=== PATIENT | male | born 1935 | race Caucasian/White ===

== ENCOUNTER 2025-09-09 11:57 | Inpatient (IN) | payer MEDICARE, MEDICAID ==
[~2025-09-09] VITALS: Ht 177.8 cm; Wt 79.9 kg
[2025-09-09] MEDS ORDERED: LORA0.5T20 PO (12:19)
[2025-09-09] MEDS ORDERED: ROSU20TA98 PO (12:19)
[2025-09-09] MEDS ORDERED: MAGN400T57 PO (12:19)
[2025-09-09] MEDS ORDERED: APIX5TAB PO (12:19)
[2025-09-09] MEDS ORDERED: BUME1TAB50 PO (12:19)
[2025-09-09] MEDS ORDERED: DAPA10TA PO (12:19)
[2025-09-09] MEDS ORDERED: AMIO200T74 PO (12:19)
[2025-09-09] MEDS ORDERED: SITA50 PO (12:19)
[2025-09-09] MEDS ORDERED: VALS40TA4 PO (12:19)
[2025-09-09] MEDS ORDERED: FINA-27 PO (12:19)
[2025-09-09] MEDS ORDERED: METO25XL PO (12:19)
[2025-09-09 12:24] LABS: PLATELET COUNT (AUTO) 180 K/uL (150-450); RED BLOOD CELL COUNT(AUTO) 4.30 MIL/uL (4.50-5.90); RED CELL DISTRIBUTION WIDTH 18.2 % (11.5-14.5); WHITE BLOOD COUNT (AUTO) 13.1 K/uL (4.5-11.0)
[2025-09-09 12:30] LABS: CALCIUM, TOTAL 8.9 mg/dL (8.8-10.5); CREATININE 1.76 mg/dL (0.60-1.30); GLOMERULAR FILTR. RATE CALC 37 mL/min (>60); GLUCOSE,RANDOM 297 mg/dL (70-110); SODIUM SERUM 137 mmol/L (136-145); UREA NITROGEN, BLOOD 25 mg/dL (7-18)
[2025-09-09 12:38] LABS: TROPONIN I-HIGH SENSITIVITY 29 ng/L (<76)
[2025-09-09] MEDS: ONDANSETRON HCL 4 MG/2 ML VIAL IVP ONE (12:44)
[2025-09-09] MEDS: SODIUM CHLORIDE 0.9% 1,000 ML IV ONE (12:45)
[2025-09-09] MEDS: CALCIUM GLUCONATE 100 MG/ML 10 ML IVP ONE (12:45)
[2025-09-09 13:08] LABS: RBC MORPHOLOGY COMMENT ABNORMAL RBC MORPH
[2025-09-09] MEDS: DIGOXIN 250 MCG/ML 2 ML AMP IVP ONE (13:44)
[2025-09-09 14:33] LABS: APPEARANCE,URINE CLEAR (CLEAR); GLUCOSE, URINE (UA) >=1000 mg/dL (NEGATIVE); LEUKOCYTE ESTERASE ,URINE SMALL (NEGATIVE); NITRATE,URINE NEGATIVE (NEGATIVE); OCCULT BLOOD,URINE LARGE (NEGATIVE); SPECIFIC GRAVITIY, URINE 1.027 (1.003-1.030)
[2025-09-09] MEDS: FUROSEMIDE 40 MG/4 ML VIAL IVP ONE (14:41)
[2025-09-09] MEDS ORDERED: POTA-92 PO (19:03)
[2025-09-09 20:00] VITALS: PULSE 110; PULSE 120
[2025-09-09] MEDS ORDERED: DEXTROSE 50%-WATER 25 GM/50 ML SYRINGE IVP PRN (20:15)
[2025-09-09 20:18] VITALS: BP 101/66; PULSE 99; RESP 19; TEMP 97.7; O2SAT 93
[2025-09-09] MEDS: APIXABAN 5 MG TABLET PO SCH (21:00)
[2025-09-09] MEDS: AMIODARONE HCL 200 MG TABLET PO ONE (21:01)
[2025-09-09] MEDS: INSULIN LISPRO 100 UNITS/ML SQ PRN (21:17)
[2025-09-09] MEDS ORDERED: SODIUM CHLORIDE 0.9% 250 ML IV ONE ×2 (21:49→21:52)
[2025-09-09] MEDS: CefTRIAXone 1 GM/DEXTROSE 50 ML IV SCH (22:21)
[2025-09-10] VITALS (13 sets, daily range): BP systolic 80–123; BP diastolic 49–85; PULSE 77–115; RESP 19–43; TEMP 95–98.6; O2SAT 83–98
[2025-09-10] MEDS ORDERED: LEVALBUTEROL 1.25 MG/0.5 ML NEB SOLUTION NEB PRN (03:00)
[2025-09-10 03:16] LABS: ABG BASE EXCESS -3.9 mmol/L (-2.0-3.0); ABG CARBOXYHEMOGLOBIN 1.0 % (0.5-1.5); ABG HCO3 22.2 mmol/L (21.0-28.0); ABG METHEMOGLOBIN 0.7 % (0.0-1.5); ABG OXYGEN CONTENT 18.1 mL/dL (15.0-23.0); ABG OXYGEN SATURATION 95.0 % (94.0-98.0); ABG OXYHEMOGLOBIN 93.4 % (94.0-98.0); ABG PCO2 29 mmHg (32.0-48.0); ABG PH 7.455 (7.350-7.450); ABG TOTAL HEMOGLOBIN 13.8 G/dL (13.5-17.5); FRACTIONATED INSPIRED OXYGEN 60.0 % (21-100.0); PO2, ARTERIAL BG 71.6 mmHg (83.0-108.0); SOURCE, BLOOD GAS ARTERIAL; TEMPERATURE, FAHRENHEIT, BG 97.5 FAHREN (96.0-98.6)
[2025-09-10 03:17] LABS: ABG A-A DIFF O2 325.0 mmHg (10-20.0); ALLEN TEST, BLOOD GAS Positive; FLOW, BLOOD GAS 10.00 L/min (0.00-15.00); O2 DEVICE,BLOOD GAS SIMPLE MASK (ROOM AIR); SITE, BLOOD GAS LFT RADIAL
[2025-09-10] MEDS: LORazepam 2 MG/ML VIAL IVP ONE (04:50)
[2025-09-10] MEDS ORDERED: DEXMEDETOMIDINE 400 MCG/NS 100 ML IV ONE (06:08)
[2025-09-10] MEDS: DEXMEDETOMIDINE 400 MCG/NS 100 ML IV PRN (06:20)
[2025-09-10 06:26] LABS: CALCIUM, TOTAL 9.2 mg/dL (8.8-10.5); CREATININE 1.74 mg/dL (0.60-1.30); GLOMERULAR FILTR. RATE CALC 37.0 mL/min (>60); GLUCOSE,RANDOM 166.0 mg/dL (70-110); SODIUM SERUM 136.0 mmol/L (136-145); UREA NITROGEN, BLOOD 31.0 mg/dL (7-18)
[2025-09-10 06:28] LABS: PLATELET COUNT (AUTO) 196 K/uL (150-450); RED BLOOD CELL COUNT(AUTO) 4.63 MIL/uL (4.50-5.90); RED CELL DISTRIBUTION WIDTH 18.4 % (11.5-14.5); WHITE BLOOD COUNT (AUTO) 11.4 K/uL (4.5-11.0)
[2025-09-10 06:29] LABS: PHOSPHORUS 4.3 mg/dL (2.5-4.9)
[2025-09-10 06:31] LABS: GLUCOMETER DEV NAME(LOC) 5S.2E; GLUCOSE,POINT OF CARE 361 MG/DL (70-110)
[2025-09-10 08:05] LABS: ABG BASE EXCESS -2.0 mmol/L (-2.0-3.0); ABG CARBOXYHEMOGLOBIN 0.9 % (0.5-1.5); ABG HCO3 23.1 mmol/L (21.0-28.0); ABG METHEMOGLOBIN 0.0 % (0.0-1.5); ABG OXYGEN CONTENT 16.3 mL/dL (15.0-23.0); ABG OXYGEN SATURATION 90.5 % (94.0-98.0); ABG OXYHEMOGLOBIN 89.7 % (94.0-98.0); ABG PCO2 35 mmHg (32.0-48.0); ABG PH 7.428 (7.350-7.450); ABG TOTAL HEMOGLOBIN 12.9 G/dL (13.5-17.5); FRACTIONATED INSPIRED OXYGEN 100.0 % (21-100.0); PO2, ARTERIAL BG 57.0 mmHg (83.0-108.0); SITE, BLOOD GAS LFT RADIAL; SOURCE, BLOOD GAS ARTERIAL; TEMPERATURE, FAHRENHEIT, BG 97.8 FAHREN (96.0-98.6)
[2025-09-10 08:06] LABS: ABG A-A DIFF O2 622.5 mmHg (10-20.0); ALLEN TEST, BLOOD GAS Positive; FLOW, BLOOD GAS 50.00 L/min (0.00-15.00); O2 DEVICE,BLOOD GAS HI FL CANNULA (ROOM AIR)
[2025-09-10 08:26] LABS: GLUCOMETER DEV NAME(LOC) ICU.S7; GLUCOSE,POINT OF CARE 183 MG/DL (70-110)
[2025-09-10] MEDS: BUMETANIDE 1 MG TABLET PO SCH (08:48)
[2025-09-10] MEDS: ROSUVASTATIN CALCIUM 20 MG TABLET PO SCH (08:48)
[2025-09-10] MEDS: MAGNESIUM OXIDE 400 MG TABLET PO SCH (08:49)
[2025-09-10] MEDS: FINASTERIDE 5 MG TABLET PO SCH (08:49)
[2025-09-10] MEDS: DAPAGLIFLOZIN PROPANEDIOL 5 MG TABLET PO SCH (08:49)
[2025-09-10 10:29] LABS: ABG BASE EXCESS -2.4 mmol/L (-2.0-3.0); ABG CARBOXYHEMOGLOBIN 0.5 % (0.5-1.5); ABG HCO3 22.9 mmol/L (21.0-28.0); ABG METHEMOGLOBIN 0.3 % (0.0-1.5); ABG OXYGEN CONTENT 18.3 mL/dL (15.0-23.0); ABG OXYGEN SATURATION 98.6 % (94.0-98.0); ABG OXYHEMOGLOBIN 97.8 % (94.0-98.0); ABG PCO2 36 mmHg (32.0-48.0); ABG PH 7.406 (7.350-7.450); ABG TOTAL HEMOGLOBIN 13.2 G/dL (13.5-17.5); FRACTIONATED INSPIRED OXYGEN 100.0 % (21-100.0); PO2, ARTERIAL BG 126.3 mmHg (83.0-108.0); SOURCE, BLOOD GAS ARTERIAL; TEMPERATURE, FAHRENHEIT, BG 98.6 FAHREN (96.0-98.6)
[2025-09-10 10:31] LABS: ABG A-A DIFF O2 550.4 mmHg (10-20.0); ALLEN TEST, BLOOD GAS Positive; O2 DEVICE,BLOOD GAS BIPAP (ROOM AIR); SITE, BLOOD GAS LFT RADIAL
[2025-09-10 10:32] LABS: PATIENT RATE, BG 26.0 min.; SET RATE, BG 20.0 min.; VENT MODE, BG NIPPV (ROOM AIR)
[2025-09-10 10:33] LABS: INSPIRATORY TIME, BG 0.90 SEC; SPONTANEOUS VT, BG 670 ml
[2025-09-10] MEDS: AZITHROMYCIN 500 MG/NS 250 ML IV SCH (12:26)
[2025-09-10] MEDS: BUMETANIDE 0.25 MG/ML 4 ML VIAL IVP SCH (12:27)
[2025-09-10] MEDS ORDERED: SODIUM CHLORIDE 0.9% 250 ML IV ONE (12:35)
[2025-09-10 13:21] LABS: GLUCOMETER DEV NAME(LOC) ICUN.7; GLUCOSE,POINT OF CARE 144 MG/DL (70-110)
[2025-09-10] MEDS: VANCOMYCIN 1.25 GM/WATER(PEG) 250 ML IV ONE (13:45)
[2025-09-10] MEDS: PHENYLEPHRINE 200 MG/D5%-WATER 250 ML IV PRN (16:36)
[2025-09-10 17:40] LABS: GLUCOMETER DEV NAME(LOC) ICUN.7; GLUCOSE,POINT OF CARE 137 MG/DL (70-110)
[2025-09-11] VITALS (9 sets, daily range): BP systolic 98–112; BP diastolic 63–77; PULSE 88–115; RESP 23–38; TEMP 97–98.7; O2SAT 93–100
[2025-09-11 01:21] LABS: GLUCOMETER DEV NAME(LOC) ICU.S7; GLUCOSE,POINT OF CARE 165 MG/DL (70-110)
[2025-09-11 05:55] LABS: PLATELET COUNT (AUTO) 203 K/uL (150-450); RED BLOOD CELL COUNT(AUTO) 4.88 MIL/uL (4.50-5.90); RED CELL DISTRIBUTION WIDTH 18.3 % (11.5-14.5); WHITE BLOOD COUNT (AUTO) 15.0 K/uL (4.5-11.0)
[2025-09-11 06:03] LABS: CALCIUM, TOTAL 9.3 mg/dL (8.8-10.5); CREATININE 1.78 mg/dL (0.60-1.30); GLOMERULAR FILTR. RATE CALC 36.0 mL/min (>60); GLUCOSE,RANDOM 145.0 mg/dL (70-110); SODIUM SERUM 139.0 mmol/L (136-145); UREA NITROGEN, BLOOD 43.0 mg/dL (7-18)
[2025-09-11 06:07] LABS: PHOSPHORUS 5.4 mg/dL (2.5-4.9)
[2025-09-11 09:41] LABS: GLUCOMETER DEV NAME(LOC) ICU.S7; GLUCOSE,POINT OF CARE 176 MG/DL (70-110)
[2025-09-11] MEDS: VANCOMYCIN 750 MG/WATER(PEG) 150 ML IV SCH (09:43)
[2025-09-11] MEDS: HYDROCORTISONE SOD SUCC 100 MG/2 ML VIAL IVP SCH (12:23)
[2025-09-11 13:41] LABS: GLUCOMETER DEV NAME(LOC) ICUN.7; GLUCOSE,POINT OF CARE 162 MG/DL (70-110)
[2025-09-11 18:10] LABS: GLUCOMETER DEV NAME(LOC) ICUN.7; GLUCOSE,POINT OF CARE 211 MG/DL (70-110)
[2025-09-11] MEDS: MORPHINE SULFATE 4 MG/ML SYRINGE IVP PRN (23:04)
[2025-09-12] VITALS: BP 119/65; PULSE 115; RESP 22; TEMP 97.6; O2SAT 95
[2025-09-12 04:00] VITALS: BP 102/68; PULSE 106; PULSE 126; RESP 22; TEMP 98; O2SAT 99
[2025-09-12 04:25] LABS: GLUCOMETER DEV NAME(LOC) ICU.S7; GLUCOSE,POINT OF CARE 215 MG/DL (70-110)
[2025-09-12 05:45] LABS: PLATELET COUNT (AUTO) 190 K/uL (150-450); RED BLOOD CELL COUNT(AUTO) 4.67 MIL/uL (4.50-5.90); RED CELL DISTRIBUTION WIDTH 18.0 % (11.5-14.5); WHITE BLOOD COUNT (AUTO) 12.4 K/uL (4.5-11.0)
[2025-09-12 05:57] LABS: CALCIUM, TOTAL 8.9 mg/dL (8.8-10.5); CREATININE 1.95 mg/dL (0.60-1.30); GLOMERULAR FILTR. RATE CALC 33.0 mL/min (>60); GLUCOSE,RANDOM 198.0 mg/dL (70-110); SODIUM SERUM 140.0 mmol/L (136-145); UREA NITROGEN, BLOOD 53.0 mg/dL (7-18)
[2025-09-12 07:10] LABS: GLUCOMETER DEV NAME(LOC) ICUN.7; GLUCOSE,POINT OF CARE 209 MG/DL (70-110)
[2025-09-12 07:43] VITALS: PULSE 69; RESP 18; O2SAT 91
[2025-09-12 08:00] VITALS: BP 107/66; PULSE 123; RESP 25; TEMP 98.4; O2SAT 94
[2025-09-12] MEDS: ETHYL ALCOHOL 62% ANTISEPTIC NASAL SANITIZER 0.6 ML AMPUL NASAL SCH (08:43)
[2025-09-12] MEDS: DIGOXIN 250 MCG/ML 2 ML AMP IVP ONE ×2 (08:47→14:45)
[2025-09-12] MEDS: MIDODRINE HCL 5 MG TABLET PO SCH (08:48)
[2025-09-12 12:00] VITALS: BP 104/76; RESP 30; TEMP 98.7; O2SAT 94
[2025-09-12 13:10] LABS: GLUCOMETER DEV NAME(LOC) ICUN.7; GLUCOSE,POINT OF CARE 294 MG/DL (70-110)
[2025-09-12] MEDS ORDERED: SODIUM CHLORIDE 0.9% 500 ML IV ONE (14:43)
[2025-09-12 16:00] VITALS: BP 118/48; RESP 27; TEMP 98.7; O2SAT 93
[2025-09-12 20:00] LABS: GLUCOMETER DEV NAME(LOC) ICUN.7; GLUCOSE,POINT OF CARE 248 MG/DL (70-110)
[2025-09-12] MEDS ORDERED: SODIUM CHLORIDE 0.9% 250 ML IV ONE (21:00)
[2025-09-12 21:05] LABS: GLUCOMETER DEV NAME(LOC) ICUN.7; GLUCOSE,POINT OF CARE 215 MG/DL (70-110)
[2025-09-13] VITALS (8 sets, daily range): BP systolic 106–129; BP diastolic 6–75; PULSE 77–98; RESP 14–29; TEMP 97.3–98.4; O2SAT 93–99
[2025-09-13] MEDS: CHLORHEXIDINE GLUCONATE 2% TOWELETTE [2'S/6'S] TP SCH
[2025-09-13 05:35] LABS: CALCIUM, TOTAL 7.9 mg/dL (8.8-10.5); CREATININE 1.59 mg/dL (0.60-1.30); GLOMERULAR FILTR. RATE CALC 41.0 mL/min (>60); GLUCOSE,RANDOM 193.0 mg/dL (70-110); SODIUM SERUM 144.0 mmol/L (136-145); UREA NITROGEN, BLOOD 42.0 mg/dL (7-18)
[2025-09-13 06:00] LABS: GLUCOMETER DEV NAME(LOC) ICUN.7; GLUCOSE,POINT OF CARE 204 MG/DL (70-110)
[2025-09-13] MEDS ORDERED: SODIUM CHLORIDE 0.9% 250 ML IV ONE ×2 (06:59→09:10)
[2025-09-13] MEDS: POTASSIUM CHL 10 MEQ/WATER 50 ML IV SCH (07:02)
[2025-09-13] MEDS ORDERED: SODIUM CHLORIDE 0.9% 500 ML IV ONE (08:20)
[2025-09-13] MEDS ORDERED: LIDOCAINE/PF 1% 30 ML VIAL ONE (09:46)
[2025-09-13 10:14] LABS: SPECIMENTYPE,BODY FLUID THORAV
[2025-09-13] MEDS: VANCOMYCIN 1GM/WATER(PEG/NADA) 200 ML IV SCH (10:21)
[2025-09-13 10:58] LABS: APPEARANCE,SPUN,BODY FLUID CLEAR (CLEAR); APPEARANCE,UNSPUN,BODY FLUID HAZY (CLEAR); COLOR,BODY FLUID LT YELLOW (LT YELLOW); PH, BODY FLUID 8.0 (6.8-7.6); TOTAL VOLUME,BODY FLUID 1400 mL
[2025-09-13 11:01] LABS: GLUCOMETER DEV NAME(LOC) ICUN.7; GLUCOSE,POINT OF CARE 164 MG/DL (70-110)
[2025-09-13 11:38] LABS: BODY FLUID RBC 381.0 /cu. mm.; LYMPHOCYTES,BODY FLUID 50 %; MONOCYTES,BODY FLUID 10 %; NEUTROPHILS,BODY FLUID 40 %; WBC, BODY FLUID 112 /cu. mm.
[2025-09-13 11:39] LABS: BASOPHILS,BODY FLUID 0 % (1-5); EOSINOPHILS,BF (ANAL) 0 %
[2025-09-13] MEDS: DIGOXIN 250 MCG/ML 2 ML AMP IVP ONE (12:26)
[2025-09-13] MEDS: ROSUVASTATIN CALCIUM 20 MG TABLET PO SCH (13:46)
[2025-09-13 20:05] LABS: GLUCOMETER DEV NAME(LOC) 5S.1E; GLUCOSE,POINT OF CARE 313 MG/DL (70-110)
[2025-09-13] MEDS ORDERED: SODIUM CHLORIDE 0.9% 1,000 ML ONE (20:31)
[2025-09-13 21:45] LABS: GLUCOMETER DEV NAME(LOC) 5S.1E; GLUCOSE,POINT OF CARE 325 MG/DL (70-110)
[2025-09-14] VITALS (8 sets, daily range): BP systolic 97–111; BP diastolic 55–73; PULSE 71–100; RESP 16–18; TEMP 97.5–97.9; O2SAT 93–97
[2025-09-14 06:16] LABS: GLUCOMETER DEV NAME(LOC) 5S.1E; GLUCOSE,POINT OF CARE 181 MG/DL (70-110)
[2025-09-14] MEDS: MAGNESIUM OXIDE 400 MG TABLET PO SCH (10:43)
[2025-09-14 14:07] LABS: GLUCOSE, BODY FLUID,REF 207.0 mg/dL; LDH,BODY FLUID,REF 122.0 IU/L; TOTAL PROTEIN,BODY FLUID,REF 2.3 g/dL
[2025-09-14 14:36] LABS: GLUCOMETER DEV NAME(LOC) 5S.1E; GLUCOSE,POINT OF CARE 313 MG/DL (70-110)
[2025-09-14 18:20] LABS: GLUCOMETER DEV NAME(LOC) 5S.1E; GLUCOSE,POINT OF CARE 116 MG/DL (70-110)
[2025-09-15 03:57] VITALS: BP 109/59; PULSE 78; RESP 18; TEMP 97.5; O2SAT 94
[2025-09-15 05:41] LABS: GLUCOMETER DEV NAME(LOC) 5N.1D; GLUCOSE,POINT OF CARE 203 MG/DL (70-110)
[2025-09-15 05:46] LABS: GLUCOMETER DEV NAME(LOC) 5S.1E; GLUCOSE,POINT OF CARE 122 MG/DL (70-110)
[2025-09-15 06:51] LABS: CALCIUM, TOTAL 8.2 mg/dL (8.8-10.5); CREATININE 1.23 mg/dL (0.60-1.30); GLOMERULAR FILTR. RATE CALC 56.0 mL/min (>60); GLUCOSE,RANDOM 112.0 mg/dL (70-110); SODIUM SERUM 142.0 mmol/L (136-145); UREA NITROGEN, BLOOD 30.0 mg/dL (7-18)
[2025-09-15 08:01] VITALS: BP 106/70; PULSE 84; RESP 18; TEMP 97.3; O2SAT 93
[2025-09-15] MEDS ORDERED: SODIUM CHLORIDE 0.9% 1,000 ML ONE (09:48)
[2025-09-15] MEDS: POTASSIUM CHL 10 MEQ/WATER 50 ML IV PRN (09:58)
[2025-09-15 11:22] LABS: PLATELET COUNT (AUTO) 130 K/uL (150-450); RED BLOOD CELL COUNT(AUTO) 4.35 MIL/uL (4.50-5.90); RED CELL DISTRIBUTION WIDTH 17.9 % (11.5-14.5); WHITE BLOOD COUNT (AUTO) 4.5 K/uL (4.5-11.0)
[2025-09-15 11:39] VITALS: BP 106/66; PULSE 66; RESP 17; TEMP 97.3; O2SAT 95
[2025-09-15 15:31] VITALS: BP 109/76; PULSE 78; RESP 18; TEMP 97.3; O2SAT 94
[2025-09-15 19:14] VITALS: BP 105/64; PULSE 81; RESP 18; TEMP 97.3; O2SAT 97
[2025-09-15 20:26] LABS: GLUCOMETER DEV NAME(LOC) 5N.1D; GLUCOSE,POINT OF CARE 167 MG/DL (70-110)
[2025-09-15 20:26] LABS: GLUCOMETER DEV NAME(LOC) 5S.1E; GLUCOSE,POINT OF CARE 228 MG/DL (70-110)
[2025-09-15 22:15] LABS: GLUCOMETER DEV NAME(LOC) 5S.1E; GLUCOSE,POINT OF CARE 258 MG/DL (70-110)
[2025-09-15 23:40] VITALS: BP 122/76; PULSE 77; RESP 18; TEMP 97.7; O2SAT 97
[2025-09-16 04:29] VITALS: BP 116/65; PULSE 78; RESP 18; TEMP 97.5; O2SAT 96
[2025-09-16 06:51] LABS: GLUCOMETER DEV NAME(LOC) 5N.1D; GLUCOSE,POINT OF CARE 131 MG/DL (70-110)
[2025-09-16 07:05] LABS: PLATELET COUNT (AUTO) 131 K/uL (150-450); RED BLOOD CELL COUNT(AUTO) 4.55 MIL/uL (4.50-5.90); RED CELL DISTRIBUTION WIDTH 17.3 % (11.5-14.5); WHITE BLOOD COUNT (AUTO) 5.6 K/uL (4.5-11.0)
[2025-09-16 07:20] LABS: CALCIUM, TOTAL 8.1 mg/dL (8.8-10.5); CREATININE 1.09 mg/dL (0.60-1.30); GLOMERULAR FILTR. RATE CALC > 60 mL/min (>60); GLUCOSE,RANDOM 124 mg/dL (70-110); SODIUM SERUM 140 mmol/L (136-145); UREA NITROGEN, BLOOD 25 mg/dL (7-18)
[2025-09-16 07:58] VITALS: BP 102/69; PULSE 76; RESP 18; TEMP 97.3; O2SAT 95
[2025-09-16 11:51] VITALS: BP 107/70; PULSE 95; RESP 18; TEMP 97.5; O2SAT 95
[2025-09-16 14:50] LABS: GLUCOMETER DEV NAME(LOC) 5N.1D; GLUCOSE,POINT OF CARE 217 MG/DL (70-110)
[2025-09-16 15:40] VITALS: BP 103/65; PULSE 69; RESP 18; TEMP 97.3; O2SAT 95
[2025-09-16 18:36] LABS: GLUCOMETER DEV NAME(LOC) 5N.1D; GLUCOSE,POINT OF CARE 155 MG/DL (70-110)
[2025-09-16 20:20] VITALS: BP 98/68; PULSE 105; RESP 18; TEMP 97.9; O2SAT 97
[2025-09-16] MEDS ORDERED: SODIUM CHLORIDE 0.9% 1,000 ML ONE (23:12)
[2025-09-16 23:17] VITALS: BP 103/63; PULSE 63; RESP 19; TEMP 97.3; O2SAT 97
[2025-09-17] VITALS (7 sets, daily range): BP systolic 97–115; BP diastolic 60–79; PULSE 56–110; RESP 17–18; TEMP 97.3–97.7; O2SAT 96–99
[2025-09-17 04:20] LABS: GLUCOMETER DEV NAME(LOC) 5S.1E; GLUCOSE,POINT OF CARE 278 MG/DL (70-110)
[2025-09-17 06:46] LABS: CALCIUM, TOTAL 8.3 mg/dL (8.8-10.5); CREATININE 1.10 mg/dL (0.60-1.30); GLOMERULAR FILTR. RATE CALC > 60 mL/min (>60); GLUCOSE,RANDOM 139 mg/dL (70-110); SODIUM SERUM 140 mmol/L (136-145); UREA NITROGEN, BLOOD 23 mg/dL (7-18)
[2025-09-17] MEDS: VANCOMYCIN 1.25 GM/WATER(PEG) 250 ML IV SCH (08:11)
[2025-09-17] MEDS: POTASSIUM CHLORIDE 20 MEQ ER TABLET PO PRN (08:15)
[2025-09-17 20:31] LABS: GLUCOMETER DEV NAME(LOC) 5N.1D; GLUCOSE,POINT OF CARE 168 MG/DL (70-110)
[2025-09-17 20:31] LABS: GLUCOMETER DEV NAME(LOC) 5S.1E; GLUCOSE,POINT OF CARE 136 MG/DL (70-110)
[2025-09-17 20:31] LABS: GLUCOMETER DEV NAME(LOC) 5N.1D; GLUCOSE,POINT OF CARE 209 MG/DL (70-110)
[2025-09-18 04:02] VITALS: BP 104/65; RESP 18; TEMP 97.3; O2SAT 98
[2025-09-18 06:13] LABS: CALCIUM, TOTAL 8.1 mg/dL (8.8-10.5); CREATININE 1.21 mg/dL (0.60-1.30); GLOMERULAR FILTR. RATE CALC 57.0 mL/min (>60); GLUCOSE,RANDOM 141.0 mg/dL (70-110); SODIUM SERUM 138.0 mmol/L (136-145); UREA NITROGEN, BLOOD 23.0 mg/dL (7-18)
[2025-09-18 06:40] LABS: GLUCOMETER DEV NAME(LOC) 5S.2E; GLUCOSE,POINT OF CARE 221 MG/DL (70-110)
[2025-09-18 09:07] VITALS: BP 131/78; PULSE 80; RESP 18; TEMP 98; O2SAT 96
[2025-09-18 12:49] VITALS: BP 99/64; PULSE 90; RESP 18; TEMP 97.6; O2SAT 98
[2025-09-18 16:56] VITALS: BP 122/72; PULSE 78; RESP 17; TEMP 98; O2SAT 97
[2025-09-18 17:46] LABS: GLUCOMETER DEV NAME(LOC) 5S.1E; GLUCOSE,POINT OF CARE 197 MG/DL (70-110)
[2025-09-18 20:30] VITALS: BP 96/69; PULSE 97; RESP 18; TEMP 97.7; O2SAT 98
[2025-09-18] MEDS: BUMETANIDE 1 MG TABLET PO SCH (20:30)
[2025-09-18 22:52] VITALS: BP 99/54; PULSE 84; RESP 18; TEMP 97.7; O2SAT 97
[2025-09-19 04:02] VITALS: BP 117/81; PULSE 96; RESP 18; TEMP 97.5; O2SAT 97
[2025-09-19 06:02] LABS: PLATELET COUNT (AUTO) 129 K/uL (150-450); RED BLOOD CELL COUNT(AUTO) 4.25 MIL/uL (4.50-5.90); RED CELL DISTRIBUTION WIDTH 17.7 % (11.5-14.5); WHITE BLOOD COUNT (AUTO) 7.0 K/uL (4.5-11.0)
[2025-09-19 06:24] LABS: CALCIUM, TOTAL 8.1 mg/dL (8.8-10.5); CREATININE 1.11 mg/dL (0.60-1.30); GLOMERULAR FILTR. RATE CALC > 60 mL/min (>60); GLUCOSE,RANDOM 113 mg/dL (70-110); SODIUM SERUM 138 mmol/L (136-145); UREA NITROGEN, BLOOD 20 mg/dL (7-18)
[2025-09-19 07:51] VITALS: BP 100/58; PULSE 92; RESP 18; TEMP 97.5; O2SAT 95
[2025-09-19] MEDS: POTASSIUM CHLORIDE 20 MEQ ER TABLET PO SCH (09:00)
[2025-09-19 11:45] LABS: GLUCOMETER DEV NAME(LOC) 5S.2E; GLUCOSE,POINT OF CARE 201 MG/DL (70-110)
[2025-09-19 11:45] LABS: GLUCOMETER DEV NAME(LOC) 5S.2E; GLUCOSE,POINT OF CARE 198 MG/DL (70-110)
[2025-09-19 12:05] LABS: GLUCOMETER DEV NAME(LOC) 5N.1D; GLUCOSE,POINT OF CARE 174 MG/DL (70-110)
[2025-09-19 15:30] VITALS: BP 102/67; PULSE 75; RESP 19; TEMP 97.3; O2SAT 99
[2025-09-19 18:06] LABS: GLUCOMETER DEV NAME(LOC) 5N.1D; GLUCOSE,POINT OF CARE 180 MG/DL (70-110)
[2025-09-19 19:56] VITALS: BP 104/85; PULSE 82; RESP 18; TEMP 97.4; O2SAT 97
[2025-09-19 23:29] VITALS: BP 105/61; PULSE 103; RESP 17; TEMP 97.7; O2SAT 97
[2025-09-20 01:45] LABS: GLUCOMETER DEV NAME(LOC) 5S.2E; GLUCOSE,POINT OF CARE 156 MG/DL (70-110)
[2025-09-20 05:06] VITALS: BP 104/82; PULSE 95; RESP 18; TEMP 98.1; O2SAT 97
[2025-09-20 07:45] LABS: GLUCOMETER DEV NAME(LOC) 5S.1E; GLUCOSE,POINT OF CARE 134 MG/DL (70-110)
[2025-09-20 07:57] LABS: PLATELET COUNT (AUTO) 145 K/uL (150-450); RED BLOOD CELL COUNT(AUTO) 4.38 MIL/uL (4.50-5.90); RED CELL DISTRIBUTION WIDTH 18.2 % (11.5-14.5); WHITE BLOOD COUNT (AUTO) 7.8 K/uL (4.5-11.0)
[2025-09-20 08:05] LABS: CALCIUM, TOTAL 8.5 mg/dL (8.8-10.5); CREATININE 1.13 mg/dL (0.60-1.30); GLOMERULAR FILTR. RATE CALC > 60 mL/min (>60); GLUCOSE,RANDOM 109 mg/dL (70-110); SODIUM SERUM 138 mmol/L (136-145); UREA NITROGEN, BLOOD 18 mg/dL (7-18)
[2025-09-20 08:09] VITALS: BP 107/76; PULSE 86; RESP 18; TEMP 97.2; O2SAT 100
[2025-09-20 12:03] VITALS: BP 104/74; PULSE 79; RESP 18; TEMP 97.8; O2SAT 98
[2025-09-20 12:05] LABS: GLUCOMETER DEV NAME(LOC) 5N.1D; GLUCOSE,POINT OF CARE 209 MG/DL (70-110)
[2025-09-20] MEDS ORDERED: MIDO5TAB29 PO (15:44)
[2025-09-20] MEDS ORDERED: AMIO200T73 PO (16:27)
[2025-09-20] MEDS: AMIODARONE HCL 200 MG TABLET PO SCH (17:17)
[2025-09-20 17:46] LABS: GLUCOMETER DEV NAME(LOC) 5N.2C; GLUCOSE,POINT OF CARE 155 MG/DL (70-110)
[2025-09-20 19:17] VITALS: BP 113/82; PULSE 107; RESP 17; TEMP 97.5; O2SAT 97
[2025-09-20 23:46] VITALS: BP 104/76; PULSE 109; RESP 18; TEMP 98.2; O2SAT 97
[2025-09-21 04:06] VITALS: BP 108/80; PULSE 112; RESP 17; TEMP 97.3; O2SAT 98
[2025-09-21 08:01] VITALS: BP 97/72; PULSE 82; RESP 18; TEMP 97.9; O2SAT 97
[2025-09-21 09:01] LABS: CALCIUM, TOTAL 8.6 mg/dL (8.8-10.5); CREATININE 1.32 mg/dL (0.60-1.30); GLOMERULAR FILTR. RATE CALC 51.0 mL/min (>60); GLUCOSE,RANDOM 128.0 mg/dL (70-110); SODIUM SERUM 141.0 mmol/L (136-145); UREA NITROGEN, BLOOD 20.0 mg/dL (7-18)
[2025-09-21 11:22] VITALS: BP 97/66; PULSE 100; RESP 18; TEMP 97.9; O2SAT 97
[2025-09-21 11:40] LABS: GLUCOMETER DEV NAME(LOC) 5N.1D; GLUCOSE,POINT OF CARE 135 MG/DL (70-110)
[2025-09-21 11:40] LABS: GLUCOMETER DEV NAME(LOC) 5N.1D; GLUCOSE,POINT OF CARE 218 MG/DL (70-110)
[2025-09-21 16:59] VITALS: BP 98/65; PULSE 65; RESP 17; TEMP 97.5; O2SAT 95
[2025-09-21 17:06] LABS: GLUCOMETER DEV NAME(LOC) 5N.2C; GLUCOSE,POINT OF CARE 282 MG/DL (70-110)
[2025-09-21 19:41] VITALS: BP 109/91; PULSE 110; RESP 18; TEMP 97.3; O2SAT 92
[2025-09-21] MEDS: AMIODARONE HCL 200 MG TABLET PO SCH (20:38)
[2025-09-21 23:16] VITALS: BP 127/96; PULSE 109; RESP 18; TEMP 98.1; O2SAT 98
[2025-09-22 00:46] LABS: GLUCOMETER DEV NAME(LOC) 5N.1D; GLUCOSE,POINT OF CARE 239 MG/DL (70-110)
[2025-09-22 00:46] LABS: GLUCOMETER DEV NAME(LOC) 5N.2C; GLUCOSE,POINT OF CARE 168 MG/DL (70-110)
[2025-09-22 03:25] VITALS: BP 128/96; PULSE 105; RESP 18; TEMP 97.7; O2SAT 97
[2025-09-22 06:26] LABS: GLUCOMETER DEV NAME(LOC) 5N.1D; GLUCOSE,POINT OF CARE 113 MG/DL (70-110)
[2025-09-22 07:20] VITALS: BP 110/76; PULSE 113; RESP 18; TEMP 98; O2SAT 98
[2025-09-22] MEDS: BUMETANIDE 1 MG TABLET PO SCH (08:53)
[2025-09-22 11:26] VITALS: BP 107/78; PULSE 114; RESP 18; TEMP 98; O2SAT 97
[2025-09-22] MEDS: METOPROLOL SUCCINATE 25 MG ER TABLET PO SCH (12:14)
[2025-09-22 12:21] LABS: GLUCOMETER DEV NAME(LOC) 5N.1D; GLUCOSE,POINT OF CARE 163 MG/DL (70-110)
[2025-09-22 16:23] VITALS: BP 99/59; PULSE 90; RESP 17; TEMP 98; O2SAT 96
[2025-09-22 18:30] LABS: GLUCOMETER DEV NAME(LOC) 5N.2C; GLUCOSE,POINT OF CARE 182 MG/DL (70-110)
[2025-09-22 19:10] VITALS: BP 105/71; PULSE 95; RESP 14; TEMP 97.9; O2SAT 97
== END 2025-09-22 19:20 | DRG 291 ==
LOC: EMS 11:57 → EDH 15:02 → 5N 19:15 → ICU 09-10 04:28 → 5S 09-13 15:35
PROVIDERS: ADMIT Hospitalist; ATTEND Hospitalist
PROC: 5A0935A Assistance with Respiratory Ventilation, Less than 24 Consecutive Hours, High Flow/Velocity Cannula (ICD-10-PCS; 2025-09-10)
PROC: 5A09357 Assistance with Respiratory Ventilation, Less than 24 Consecutive Hours, Continuous Positive Airway Pressure (ICD-10-PCS; 2025-09-10)
PROC: 5A0935A Assistance with Respiratory Ventilation, Less than 24 Consecutive Hours, High Flow/Velocity Cannula (ICD-10-PCS; 2025-09-11)
PROC: 5A09357 Assistance with Respiratory Ventilation, Less than 24 Consecutive Hours, Continuous Positive Airway Pressure (ICD-10-PCS; 2025-09-11)
PROC: 0W9B30Z Drainage of Left Pleural Cavity with Drainage Device, Percutaneous Approach (ICD-10-PCS; principal; 2025-09-13)
PROC: 0W9930Z Drainage of Right Pleural Cavity with Drainage Device, Percutaneous Approach (ICD-10-PCS; 2025-09-13)
DX: I13.0 Hypertensive heart and chronic kidney disease with heart failure and stage 1 through stage 4 chronic kidney disease, or unspecified chronic kidney disease (principal); I50.23 Acute on chronic systolic (congestive) heart failure; J96.01 Acute respiratory failure with hypoxia; J18.9 Pneumonia, unspecified organism; J15.69 Pneumonia due to other Gram-negative bacteria; Z66 Do not resuscitate; I48.20 Chronic atrial fibrillation, unspecified; I95.9 Hypotension, unspecified; N39.0 Urinary tract infection, site not specified; Z79.01 Long term (current) use of anticoagulants; N18.30 Chronic kidney disease, stage 3 unspecified; E11.22 Type 2 diabetes mellitus with diabetic chronic kidney disease; F03.90 Unspecified dementia, unspecified severity, without behavioral disturbance, psychotic disturbance, mood disturbance, and anxiety; I25.5 Ischemic cardiomyopathy; E78.5 Hyperlipidemia, unspecified; E11.65 Type 2 diabetes mellitus with hyperglycemia; Z79.899 Other long term (current) drug therapy
CPT/HCPCS: 32555; 70450; 71045; 71250; 76942; 80048; 80162; 80202; 81001; 82465; 82805; 82945; 82962; 83615; 83735; 83880; 83986; 84100; 84132; 84157; 84484; 85025; 85610; 85730; 87015; 87075; 87081; 87086; 87101; 87205; 87206; 88108; 88305; 89051; 92526; 92610; 93005; 93306; 94660; 97110; 97116; 97163; 97166; 97530; 97535; 99291; J0456; J0610; J0696; J1160; J1720; J1938; J2060; J2270; J2370; J2405; J3480; J3490; J7030; J7040; J7050; 36415-L1; 36415-TC; 87070